=== PATIENT | male | born 1955 | race Caucasian/White ===

== ENCOUNTER 2018-04-13 17:34 | Emergency (ER) | payer OTHER, MEDICAID, SELFPAY ==
--- NOTE | 2018-04-13 17:36 | ED.ABDPAIN ---
HPI - Abdominal Pain <MAXI Joseph - Last Filed: 04/13/18 22:14> General Chief Complaint: Abdominal Pain Stated Complaint: N/V w/black vomit Time Seen by Provider: 04/13/18 17:35 Source: patient Mode of arrival: EMS Limitations: no limitations History of Present Illness HPI narrative: 62-year-old healthy male that is a nonsmoker here for complaint of having nausea and vomiting today. He states that he had a few episodes of vomiting. Last episode of vomiting was a couple of hours ago. He reports that he did have 1 episode where he had dark vomit. He is not on any blood thinners. He denies any abdominal pain. significant other had similar symptoms a few days ago. As resolved. He denies any urinary symptoms. Last bowel movement was earlier today and was normal for him. He denies having any dark stools. He denies any other concerns or complaints. MD complaint: other Related Data Previous Rx's Medication Instructions Recorded ondansetron 4 mg PO BID-TID PRN #10 tab 04/13/18 Allergies Allergy/AdvReac Type Severity Reaction Status Date / Time halothane Allergy Unverified 04/13/18 17:49 Review of Systems <MAXI Joseph - Last Filed: 04/13/18 22:14> Constitutional Denies chills, Denies fever(s), Denies lethargy and Denies weakness Eyes Denies change in vision, Denies eye discharge, Denies irritation and Denies loss of vision ENT Ears, Nose, Mouth, and Throat: Denies change in voice, Denies neck pain and Denies sore throat Cardiovascular Denies chest pain, Denies irregular heart rhythm, Denies lightheadedness, Denies palpitations, Denies dyspnea, Denies dyspnea on exertion and Denies orthopnea Respiratory Denies cough, Denies dyspnea, Denies dyspnea on exertion and Denies wheezing Gastrointestinal Gastrointestinal: Reports vomiting Genitourinary Denies hematuria, Denies flank pain, Denies urinary incontinence and Denies urinary urgency Musculoskeletal Denies neck pain Integumentary/Breasts Denies pruritus, Denies erythema, Denies rash and Denies wounds Neurologic Denies confusion, Denies loss of vision and Denies weakness Psychiatric Denies anxiety, Denies confusion, Denies depression, Denies homicidal ideation and Denies suicidal ideation Endocrine Denies palpitations Hematologic/Lymphatic Denies easy bruising Allergic/Immunologic Denies wheezing Exam <MAXI Joseph - Last Filed: 04/13/18 22:14> Initial Vital Signs Initial Vital Signs: Vital Signs Temperature 98.2 F 04/13/18 17:41 Pulse Rate 113 H 04/13/18 17:41 Respiratory Rate 18 04/13/18 17:41 Blood Pressure 128/79 04/13/18 17:41 Pulse Oximetry 98 04/13/18 17:41 Const General: cooperative and well developed Nutritional Appearance: well nourished Orientation: alert, awake, oriented x3 and not confused HENMA Mouth: oral mucosae normal and moist mucous membranes Teeth and gingiva: dentition normal Eyes Conjunctivae: conjunctivae normal Sclera: sclerae normal Pupils: PERRL EOM: EOM intact bilaterally Resp Effort & Inspection: normal respiratory effort, able to speak in complete sentences, no respiratory distress and no use of accessory muscles Auscultation: clear to auscultation bilaterally, no rales, no rhonchi and no wheezes Cardio Rate: regular rate Rhythm: regular rhythm Heart Sounds: no click, no gallops, no murmurs and no rubs Pulses: normal peripheral pulses GI Inspection: non-distended Palpation: soft, no hepatosplenomegaly, No guarding, No pulsatile mass and No tender Auscultation: normal bowel sounds Rectal Exam: visual inspection normal, normal sphincter tone, prostate normal and heme negative stool Skin General: no rashes or lesions noted, No jaundice and No petechiae Neuro General: alert, oriented x3, gait normal and no focal motor deficits Speech: speech normal <Kayden Johnston DO - Last Filed: 04/14/18 04:27> Initial Vital Signs Initial Vital Signs: Vital Signs Temperature 98.2 F 04/13/18 17:41 Pulse Rate 113 H 04/13/18 17:41 Respiratory Rate 18 04/13/18 17:41 Blood Pressure 128/79 04/13/18 17:41 Pulse Oximetry 98 04/13/18 17:41 Course <MAXI Joseph - Last Filed: 04/13/18 22:14> Orders Ordered: Discontinued Medications Sodium Chloride (Normal Saline 0.9%) 1,000 mls @ 1,000 mls/hr IV BOLUS PRN PRN Reason: Fluid replacement Last Infusion: 04/13/18 20:13 Dose: 1,000 mls/hr Admin: 04/13/18 19:30 Dose: 1,000 mls/hr Ondansetron HCl (Zofran) 4 mg IV NOW ONE Stop: 04/13/18 17:52 Last Admin: 04/13/18 18:43 Dose: 4 mg Vital Signs - 8 hr 04/13/18 20:13 Pulse Rate 93 H Respiratory Rate 12 Blood Pressure [Right Arm] 123/72 Pulse Oximetry 100 <Kayden Johnston DO - Last Filed: 04/14/18 04:27> Orders Ordered: Discontinued Medications Sodium Chloride (Normal Saline 0.9%) 1,000 mls @ 1,000 mls/hr IV BOLUS PRN PRN Reason: Fluid replacement Last Infusion: 04/13/18 20:13 Dose: 1,000 mls/hr Admin: 04/13/18 19:30 Dose: 1,000 mls/hr Ondansetron HCl (Zofran) 4 mg IV NOW ONE Stop: 04/13/18 17:52 Last Admin: 04/13/18 18:43 Dose: 4 mg Vital Signs - 8 hr 04/13/18 20:13 Pulse Rate 93 H Respiratory Rate 12 Blood Pressure [Right Arm] 123/72 Pulse Oximetry 100 MDM - Abdominal Pain <MAXI Joseph - Last Filed: 04/13/18 22:14> Lab Data Result diagrams: 04/13/18 18:03 04/13/18 18:03 Lab Results 04/13/18 04/13/18 04/13/18 Range/Units 18:03 18:03 18:03 WBC 10.7 (4.5-11.0) X10^3/uL RBC 5.13 (4.5-5.9) X10^6/uL Hgb 15.6 (13.5-17.5) g/dL Hct 45.0 (41-53) % MCV 87.6 (80-100) fL MCH 30.4 (26-34) PG MCHC 34.7 (30-36) % RDW 12.9 (11.6-14.8) % Plt Count 168 (150-400) X10^3/uL Neut % (Auto) 85.4 H (50-75) % Lymph % (Auto) 4.7 L (25-40) % [place] % (Auto) 8.9 (3-14) % Eos % (Auto) 0.8 L (2-4) % Baso % (Auto) 0.2 (0-2) % Neut # (Auto) 9100 H (0910-2714) /uL PT 13.8 H (10.1-12.7) SECONDS INR 1.2 (0.9-1.3) Sodium 144 (137-145) mmol/L Potassium 3.9 (3.4-5.1) mmol/L Chloride 106 (98-107) mmol/L Carbon Dioxide 25 (22-32) mmol/L BUN 23 H (9-20) mg/dL Creatinine 0.70 (0.66-1.25) mg/dL Estimated GFR > 60.0 (>60) mL/min BUN/Creatinine Ratio 32.9 H (6-22) Glucose 125 H (80-110) mg/dL Calcium 8.5 (8.4-10.2) mg/dL Total Bilirubin 3.3 H (0.2-1.3) mg/dL AST 20 (17-59) IU/L ALT 18 L (21-72) IU/L Alkaline Phosphatase 65 (38-126) U/L Total Protein 6.9 (6.3-8.2) g/dL Albumin 4.0 (3.5-5.0) g/dL Globulin 2.9 (1.7-4.1) g/dL Albumin/Globulin Ratio 1.4 (1.0-2.8) Point of care testing: Point of Care Testing Stool Occult Blood Negative MDM Narrative Medical decision making narrative: No acute abdominal pain. No flank pain. CBC and Chem panel were obtained were unremarkable. INR was normal. Stool guaiac was negative. He was given Zofran in the emergency room is able to tolerate p.o. intake. Will treat as a viral illness at this point. Zofran is prescribed to help with nausea. Follow up with primary care provider later this week. If he has continued nausea vomiting and dark emesis recommend endoscopy. For any worsening symptoms return to the emergency room. <Kayden Johnston DO - Last Filed: 04/14/18 04:27> Lab Data Lab Results 04/13/18 04/13/18 04/13/18 Range/Units 18:03 18:03 18:03 WBC 10.7 (4.5-11.0) X10^3/uL RBC 5.13 (4.5-5.9) X10^6/uL Hgb 15.6 (13.5-17.5) g/dL Hct 45.0 (41-53) % MCV 87.6 (80-100) fL MCH 30.4 (26-34) PG MCHC 34.7 (30-36) % RDW 12.9 (11.6-14.8) % Plt Count 168 (150-400) X10^3/uL Neut % (Auto) 85.4 H (50-75) % Lymph % (Auto) 4.7 L (25-40) % [place] % (Auto) 8.9 (3-14) % Eos % (Auto) 0.8 L (2-4) % Baso % (Auto) 0.2 (0-2) % Neut # (Auto) 9100 H (6071-0070) /uL PT 13.8 H (10.1-12.7) SECONDS INR 1.2 (0.9-1.3) Sodium 144 (137-145) mmol/L Potassium 3.9 (3.4-5.1) mmol/L Chloride 106 (98-107) mmol/L Carbon Dioxide 25 (22-32) mmol/L BUN 23 H (9-20) mg/dL Creatinine 0.70 (0.66-1.25) mg/dL Estimated GFR > 60.0 (>60) mL/min BUN/Creatinine Ratio 32.9 H (6-22) Glucose 125 H (80-110) mg/dL Calcium 8.5 (8.4-10.2) mg/dL Total Bilirubin 3.3 H (0.2-1.3) mg/dL AST 20 (17-59) IU/L ALT 18 L (21-72) IU/L Alkaline Phosphatase 65 (38-126) U/L Total Protein 6.9 (6.3-8.2) g/dL Albumin 4.0 (3.5-5.0) g/dL Globulin 2.9 (1.7-4.1) g/dL Albumin/Globulin Ratio 1.4 (1.0-2.8) Point of care testing: Point of Care Testing Stool Occult Blood Negative Discharge Plan Departure Patient Disposition: Home Clinical Impression: Nausea and vomiting Discharge Date/Time: 04/13/18 20:15 Interventions: ED Discharge Assessment Last Done: 04/13/18 20:14 Instructions: DI for Vomiting -- Adult Activity Restrictions/Additional Instructions: Laboratory results today were unremarkable. Stool study did not show any signs of blood in the stool. Signs symptoms presents as a viral illness. Use Zofran as prescribed to help with nausea. Follow up with primary care provider in the next few days for re-evaluation if continued nausea vomiting especially if dark recommend endoscopy to rule out any complications. For any worsening symptoms return to the emergency room. Prescriptions: New ondansetron 4 mg tablet,disintegrating 4 mg PO BID-TID PRN (Reason: nausea and vomiting) Qty: 10 RF: 0 Referrals: [facility] [Provider Group] <Kayden Johnston DO - Last Filed: 04/14/18 04:27> Cosign ED Attending You Attestation: I was immediately available in the department for consultation. Documentation has been reviewed. I agree with assessment and plan.
[2018-04-13 17:41] VITALS: BP 128/79; PULSE 113; RESP 18; TEMP 36.8; O2SAT 98
[2018-04-13 18:13] LABS: Add Manual Diff / Slide Review NO; Basophils Percent Auto 0.2 % (0-2); Eosinophils Percent Auto 0.8 % (2-4); Hemoglobin 15.6 g/dL (13.5-17.5); Lymphocytes Percent Auto 4.7 % (25-40); Mean Corpuscular HGB Conc 34.7 % (30-36); Mean Corpuscular Hemoglobin 30.4 PG (26-34); Mean Corpuscular Volume 87.6 fL (80-100); Monocytes Percent Auto 8.9 % (3-14); Neutrophils Absolute Auto 9100 /uL (1500-7000); Neutrophils Percent Auto 85.4 % (50-75); Platelet Count 168 X10^3/uL (150-400); Red Blood Cell Count 5.13 X10^6/uL (4.5-5.9); Red Cell Distribution Width 12.9 % (11.6-14.8); White Blood Cell Count 10.7 X10^3/uL (4.5-11.0)
[2018-04-13 18:19] LABS: INR 1.2 (0.9-1.3); Prothrombin Time 13.8 SECONDS (10.1-12.7)
[2018-04-13 18:23] LABS: Alanine Aminotransferase 18 IU/L (21-72); Albumin Globulin Ratio 1.4 (1.0-2.8); Alkaline Phosphatase 65 U/L (38-126); Aspartate Aminotransferase 20 IU/L (17-59); BUN Creatinine Ratio 32.9 (6-22); Bilirubin Total 3.3 mg/dL (0.2-1.3); Blood Urea Nitrogen 23 mg/dL (9-20); Calcium 8.5 mg/dL (8.4-10.2); Carbon Dioxide 25 mmol/L (22-32); Chloride 106 mmol/L (98-107); Estimated Glomerular Filt Rate > 60.0 mL/min (>60); Globulin 2.9 g/dL (1.7-4.1); Glucose 125 mg/dL (80-110); HEMOLYSIS 23 (0-50); Potassium 3.9 mmol/L (3.4-5.1); Sodium 144 mmol/L (137-145); Total Protein 6.9 g/dL (6.3-8.2)
[2018-04-13] MEDS: ONDANSETRON 4 MG/2 ML INJ IV (18:43)
[2018-04-13] MEDS: SODIUM CHLORIDE 0.9% 1,000 ML 1000 ML IV (19:30)
[2018-04-13 19:45] VITALS: PULSE 100; O2SAT 100
[2018-04-13 20:13] VITALS: BP 123/72; PULSE 93; RESP 12; O2SAT 100
== END 2018-04-13 20:15 | disposition home or self-care (01) ==
PROVIDERS: Emergency Provider Nurse Practitioner Family
DX: R11.2 Nausea with vomiting, unspecified (principal)
CPT/HCPCS: 80053; 82272; 85025; 85610; 96361; 96374; 99283; 99284; J2405